=== PATIENT | female | born 1985 | race Caucasian/White ===

== ENCOUNTER 2017-03-03 09:37 | Emergency (ER) | payer MEDICAID ==
[~2017-03-03] VITALS: Ht 165.1 cm; Wt 93.0 kg
[2017-03-03 10:11] VITALS: Ht 165.1 cm; Wt 93.0 kg
--- NOTE | 2017-03-03 10:45 | ERA ---
ER Documentation Chief Complaint Date/Time DATE: 03/03/17 TIME: 10:42 Chief Complaint SENT FROM CLINIC FOR ULTRASOUND R/O ETOPIC , LMP 01/20, DENIES PAIN HPI This is a 31-year-old with positive test and [facility]. Patient is 6 weeks by LMP. Patient was sent to ER from the clinic for complicated by GDM. Bedside ultrasound of the clinic showed empty uterus and possible adnexal mass or cyst. Patient at this time is experiencing no symptoms. States that there was little bit of bleeding with her pelvic exam at the clinic. No other current complaints. ROS All systems reviewed and are negative except as per history of present illness. Allergies Allergies: Coded Allergies: No Known Drug Allergies (Verified Allergy, 11/11/11) PMhx/Soc History of Surgery: Yes ( x1) Anesthesia Reaction: No Hx Neurological Disorder: No Hx Respiratory Disorders: Yes (Asthma) Hx Cardiac Disorders: No Hx Psychiatric Problems: No Hx Miscellaneous Medical Probl: No Hx Alcohol Use: No Hx Substance Use: No Hx Tobacco Use: No Physical Exam Vitals Vital Signs Date Time Temp Pulse Resp B/P Pulse Ox O2 Delivery O2 Flow Rate FiO2 03/03/17 10:11 98.7 61 20 122/75 100 Physical Exam Const: Overweight 31-year-old female Head: Atraumatic Eyes: Normal Conjunctiva. PERRLA. EOMI bilaterally. ENT: Normal External Ears, Nose and Mouth. Neck: Full range of motion..~ No meningismus. Resp: Clear to auscultation bilaterally Cardio: Regular rate and rhythm, no murmurs Abd: Soft, non tender, non distended. Normal bowel sounds. No fetus palpated on abdominal exam. Skin: No petechiae or rashes Back: No midline or flank tenderness Ext: No cyanosis, or edema Neur: Awake and alert. Neurovascularly intact bilaterally. Psych: Normal Mood and Affect Result Diagram: 03/03/17 1056 Results 24 hrs Laboratory Tests Test 03/03/17 10:56 White Blood Count 9.310^3/ul Red Blood Count 4.7110^6/ul Hemoglobin 10.9g/dl Hematocrit 34.0% Mean Corpuscular Volume 72.2fl Mean Corpuscular Hemoglobin 23.1pg Mean Corpuscular Hemoglobin Concent 32.1g/dl Red Cell Distribution Width 16.2% Platelet Count 05187^3/UL Mean Platelet Volume 10.3fl Neutrophils % 59.5% Lymphocytes % 31.9% Monocytes % 4.8% Eosinophils % 2.6% Basophils % 0.6% Nucleated Red Blood Cells % 0.0/100WBC Neutrophils # 5.510^3/ul Lymphocytes # 3.010^3/ul Monocytes # 0.510^3/ul Eosinophils # 0.210^3/ul Basophils # 0.110^3/ul Nucleated Red Blood Cells # 0.010^3/ul Urine Color LT. YELLOW Urine Clarity CLEAR Urine pH 5.5 Urine Specific [place] <=1.005 Urine Ketones NEGATIVE Urine Nitrite NEGATIVE Urine Bilirubin NEGATIVE Urine Urobilinogen 0.2 E.U./dL Urine Leukocyte Esterase NEGATIVE Urine Microscopic RBC 0-2/HPF Urine Microscopic WBC NONE SEEN/HPF Urine Epithelial Cells FEW Urine Bacteria FEW Urine Hemoglobin 2+ Urine Glucose NEGATIVE% Urine Total Protein NEGATIVE Beta HCG, Quantitative 96582.0mIU/ml Procedures/MDM Patient was sent by [facility]. Will rule out ectopic . Ultrasound and lab work has been ordered for evaluation. Patient has no discomfort at this time and has refused any pain medications. Patient's ultrasound results were read by the radiologist and showed the following impression :Possible early intrauterine at 5 weeks and 6 days. Close followup ultrasound and hCG is recommended. Simple cyst in the right ovary. Beta-hCG levels are within normal range however patient will be recommended to follow-up in 48 hours for repeat levels. Most likely diagnosis at this time is a threatened . At this time I do not suspect ovarian torsion, tubo-ovarian abscess, mechanical obstruction, ectopic , hernia, appendicitis, intestinal ischemia, PID, AAA, diverticulitis or cystitis. Patient is well-appearing and her current condition is appropriate for discharge. Patient will be discharged with discharge instructions return precautions. Patient has verbally agreed to the assessment and plan. I spoke with my attending Dr. Watts who also agrees with the assessment and plan. Departure Diagnosis: Primary Impression: Vaginal bleeding before 22 weeks gestation Additional Impression: Encounter for laboratory test Condition: Stable Additional Instructions: Follow-up in 2 days at the ED or with [facility] for repeat beta hCG levels. If symptoms change or worsen return to the emergency department immediately. MARÍA BATES PA-C Mar 03, 2017 10:45
[2017-03-03 11:10] LABS: ADD SCAN DIFF NO
[2017-03-03 11:14] LABS: BASOPHIL # 0.1 10^3/ul (0.0-0.1); BASOPHILS % 0.6 % (0.0-2.0); EOSINOPHILS # 0.2 10^3/ul (0.0-0.5); EOSINOPHILS % 2.6 % (0.0-7.0); HEMOGLOBIN 10.9 g/dl (12.0-16.0); LYMPHOCYTES % 31.9 % (15.0-51.0); MEAN CORPUSCULAR HEMOGLOBIN 23.1 pg (29.0-33.0); MEAN CORPUSCULAR HGB CONC 32.1 g/dl (32.0-37.0); MEAN CORPUSCULAR VOLUME 72.2 fl (82.0-101.0); MEAN PLATELET VOLUME 10.3 fl (7.4-10.4); MONOCYTE # 0.5 10^3/ul (0.3-0.9); MONOCYTES % 4.8 % (0.0-11.0); NEUTROPHIL # 5.5 10^3/ul (1.6-7.5); NEUTROPHILS % 59.5 % (39.0-77.0); PLATELET COUNT 397 10^3/UL (140-415); RED BLOOD COUNT 4.71 10^6/ul (4.20-5.40); RED CELL DISTRIBUTION WIDTH 16.2 % (11.5-14.5); WHITE BLOOD COUNT 9.3 10^3/ul (4.8-10.8)
[2017-03-03 11:22] LABS: ADD UMIC YES; URINE BILIRUBIN (Dip) NEGATIVE (NEGATIVE); URINE BLOOD (Dip) 2+ (NEGATIVE); URINE COLOR LT. YELLOW (YELLOW); URINE GLUCOSE (Dip) NEGATIVE (NEGATIVE); URINE KETONES (Dip) NEGATIVE (NEGATIVE); URINE LEUKOCYTE ESTERASE (Dip) NEGATIVE (NEGATIVE); URINE NITRITE (Dip) NEGATIVE (NEGATIVE); URINE TOTAL PROTEIN (Dip) NEGATIVE (NEGATIVE); URINE UROBILINOGEN (Dip) 0.2 E.U./dL (0.1-1.0)
[2017-03-03 11:33] LABS: BACTERIA,URINE FEW; URINE RBCS 0-2 /HPF (0)
--- NOTE | 2017-03-03 11:39 | RADRPT ---
PROCEDURE: US Pelvis/OB. CLINICAL INDICATION: vaginal bleeding TECHNIQUE: Multiple sonographic images of the pelvis were obtained utilizing a transabdominal and endovaginal technique. The images were reviewed on a PACS workstation. COMPARISON: None. FINDINGS: The study is limited due to the patient's body habitus. There is a small cystic structure within the endometrium measuring 1.2 cm which would correspond to a calculated gestational age of 5 weeks and 6 days. There is a yolk sac visualized. No pole i s yet visualized. The right ovary measures 3.7 x 3.3 x 3.4 cm. There is a 2.6 cm simple cyst in the right ovary. The left ovary was not visualized. There is a small amount of free fluid in the cul-de-sac. RPTAT: AA IMPRESSION: Possible early intrauterine at 5 weeks and 6 days. Close followup ultrasound and hCG is recommended. Simple cyst in the right ovary. .Mack Lam MD, MD Date Time Electronically viewed and signed by .Mack Lam MD, on 03/03/2017 11:39 .S/
== END 2017-03-03 12:55 | disposition home or self-care (01) ==
LOC: FTE 09:37
DX: O20.9 Hemorrhage in early pregnancy, unspecified (principal); Z36 Encounter for antenatal screening of mother; Z3A.01 Less than 8 weeks gestation of pregnancy
CPT/HCPCS: 36415; 76801; 76817; 81001; 84702; 85025; 86900; 86901; Z7502

== ENCOUNTER 2017-04-14 20:07 | Emergency (ER) | payer MEDICAID ==
[~2017-04-14] VITALS: Ht 170.2 cm; Wt 94.0 kg
[2017-04-14 20:11] VITALS: Ht 170.2 cm; Wt 94.0 kg
[2017-04-14] MEDS ORDERED: ACETAMINOPHEN 325 MG TAB PO STA (20:31)
--- NOTE | 2017-04-14 20:44 | ERD ---
ER Documentation Chief Complaint Date/Time DATE: 04/14/17 TIME: 20:42 Chief Complaint 12 weeks , pelvic pain, back pain, hot flashes HPI 31-year-old female presents here in emergency department for complaints of pelvic pain radiating to the back started today, patient also has been complaining of hot flashes. Patient's approximate 12 weeks . Patient is 2 para 1 0. LMP 01/20/2017. Patient denies any vaginal bleeding. Patient denies any fever or chills. Patient denies any nausea or vomiting. ROS All systems reviewed and are negative except as per history of present illness. Medications Home Meds Active Scripts Acetaminophen* (Tylophen*) 500 Mg Capsule, 1 CAP PO Q6H Y for PAIN AND OR ELEVATED TEMP, #20 CAP Prov:GONZALEZ SILVA [employer] 04/14/17 Cephalexin* (Keflex*) 500 Mg Capsule, 500 MG PO QID for 10 Days, CAP Prov:GONZALEZ SILVA [employer] 04/14/17 Reported Medications [none] Unknown Strength No Conflict Check 04/14/17 Allergies Allergies: Coded Allergies: No Known Drug Allergies (Verified Allergy, 11/11/11) PMhx/Soc History of Surgery: Yes ( x1) Anesthesia Reaction: No Hx Neurological Disorder: No Hx Respiratory Disorders: Yes (Asthma) Hx Cardiac Disorders: No Hx Psychiatric Problems: No Hx Miscellaneous Medical Probl: No Hx Alcohol Use: No Hx Substance Use: No Hx Tobacco Use: No Smoking Status: Never smoker FmHx Family History: No coronary disease, No diabetes, No other Physical Exam Vitals Vital Signs Date Time Temp Pulse Resp B/P Pulse Ox O2 Delivery O2 Flow Rate FiO2 04/14/17 20:11 97.8 66 20 162/84 98 Physical Exam GENERAL: The patient is well developed and appropriate for usual state of health, in no apparent distress. CHEST: Clear to auscultation bilaterally. There are no rales, wheezes or rhonchi. HEART: Regular rate and rhythm. No murmurs, clicks, rubs or gallops. No S3 or S4. ABDOMEN: Soft, nontender and nondistended. Good bowel sounds. No rebound or guarding. No gross peritonitis. No gross organomegaly or masses. No Godfrey sign or McBurney point tenderness. BACK: No midline or flank tenderness. EXTREMITIES: Equal pulses bilaterally. There is no peripheral clubbing, cyanosis or edema. No focal swelling or erythema. Full range of motion. Grossly neurovascularly intact. NEURO: Alert and oriented. Cranial nerves 2-12 intact. Motor strength in all 4 extremities with 5/5 strength. Sensation grossly intact. Normal speech and gait. SKIN: There is no apparent rash or petechia. The skin is warm and dry. HEMATOLOGIC AND LYMPHATIC: There is no evidence of excessive bruising or lymphedema. No gross cervical, axillary, or inguinal lymphadenopathy. Result Diagram: 04/14/172102 Results 24 hrs Laboratory Tests Test 04/14/17 20:42 04/14/17 21:03 Urine Color STRAW Urine Clarity CLEAR Urine pH 7.0 Urine Specific [place] 1.010 Urine Ketones NEGATIVEmg/dL Urine Nitrite NEGATIVEmg/dL Urine Bilirubin NEGATIVEmg/dL Urine Urobilinogen NEGATIVEmg/dL Urine Leukocyte Esterase TRACELeu/ul Urine Microscopic RBC 3/HPF Urine Microscopic WBC 1/HPF Urine Squamous Epithelial Cells FEW/HPF Urine Bacteria FEW/HPF Urine Hemoglobin 2+mg/dL Urine Glucose NEGATIVEmg/dL Urine Total Protein NEGATIVEmg/dl White Blood Count 10.610^3/ul Red Blood Count 4.6310^6/ul Hemoglobin 11.1g/dl Hematocrit 34.4% Mean Corpuscular Volume 74.3fl Mean Corpuscular Hemoglobin 24.0pg Mean Corpuscular Hemoglobin Concent 32.3g/dl Red Cell Distribution Width 18.0% Platelet Count 67864^3/UL Mean Platelet Volume 10.7fl Neutrophils % 56.3% Lymphocytes % 33.0% Monocytes % 6.2% Eosinophils % 3.5% Basophils % 0.4% Nucleated Red Blood Cells % 0.0/100WBC Neutrophils # 6.010^3/ul Lymphocytes # 3.510^3/ul Monocytes # 0.710^3/ul Eosinophils # 0.410^3/ul Basophils # 0.010^3/ul Nucleated Red Blood Cells # 0.010^3/ul Beta HCG, Quantitative 926465.0mIU/ml Current Medications Medications (Trade) Dose Ordered Sig/Henry Route PRN Reason Start Time Stop Time Status Last Admin Dose Admin Acetaminophen (Tylenol Tab) 650 mg ONCE STAT PO 04/14/17 20:31 04/14/17 20:33 DC 04/14/17 20:57 Patient was given medication for pain here in emergency department, after treatment, patient verbalized feeling much better. Patient's pain is improved. PROCEDURE: OB Ultrasound. CLINICAL INDICATION: Positive test. Pelvic pain. TECHNIQUE: Ultrasound of the pelvis was performed with transabdominal sonography in the axial and sagittal planes. COMPARISON: No prior study is available for comparison. FINDINGS: There is a single intrauterine gestational sac. pole and yolk sac are present. There is heart motion. heart rate is 166 beats per minute. [place]-rump length is 5.40 cm. Mean sac diameter is 5.60 cm. Menstrual age by ultrasound dates is 12 weeks 1 day. This indicates an expected date of delivery of 10/26/2017. The ovaries are not visualized. There is no other pelvic mass or free fluid. IMPRESSION: 1. Single live intrauterine gestation of 12 weeks 1 day menstrual age by ultrasound dates. 2. Expected date of delivery is 10/26/2017. RPTAT: QQ .Jan Montalvo MD, MD Date Time Electronically viewed and signed by .Jan Montalvo MD, MD on 04/14/2017 21:29 .R/ Procedures/MDM Medical Decision Making: Patient's symptoms of pelvic pain most active consistent with urinary tract infection, could most likely be also from the growing . Patient is a viable without any subchorionic hemorrhage. No symptoms of any threatened at this time. No symptoms of pyelonephritis. There is low suspicion for abdominal emergencies at this time. Patients abdominal exam is normal at this time. Patients radiology exam does not show any abdominal emergencies at this time. There is low suspicion for appendicitis, cholecystitis, abdominal aortic aneurysms or peritonitis at this time. There is low suspicion for sepsis. Patient appears well and is hemodynamically stable. Disposition: Home. Condition: Stable Prescription Tylenol, Keflex Instructions: Patient is advised to take medications as prescribed. Patient is advised to rest, increase fluid intake and do brat diet for next 1-2 days and progress as tolerated. Patient is advised that if symptoms are worse, severe abdominal pain, uncontrolled vomiting, high fever, severe flank pain, worst signs and symptoms, to return to the emergency department immediately. Otherwise, patient can follow up with OB doctor in 2 days for reevaluation of symptoms. Departure Diagnosis: Primary Impression: UTI (urinary tract infection) Urinary tract infection type: acute cystitis Hematuria presence: with hematuria Qualified Code: N30.01 - Acute cystitis with hematuria Additional Impressions: Pelvic pain Intrauterine Condition: Stable Patient Instructions: Pelvic Pain In : Unclear (2-3 Trimester), Pelvic Tilt, Leg Lift for Back Pain During , Understanding Urinary Tract Infections (UTIs) Additional Instructions: Patient is advised to take medications as prescribed. Patient is advised to rest , increase fluid intake and do brat diet for next 1-2 days and progress as tolerated. Patient is advised that if symptoms are worse, severe abdominal pain , uncontrolled vomiting, high fever, severe flank pain, worst signs and symptoms , to return to the emergency department immediately. Otherwise, patient can follow up with OB doctor in 2 days for reevaluation of symptoms. GONZALEZ SILVA NP Apr 14, 2017 20:44
[2017-04-14 21:13] LABS: ADD SCAN DIFF NO
[2017-04-14 21:14] LABS: BASOPHILS % 0.4 % (0.0-2.0); EOSINOPHILS # 0.4 10^3/ul (0.0-0.5); EOSINOPHILS % 3.5 % (0.0-7.0); HEMATOCRIT 34.4 % (37.0-47.0); HEMOGLOBIN 11.1 g/dl (12.0-16.0); LYMPHOCYTES # 3.5 10^3/ul (0.8-2.9); MEAN CORPUSCULAR HGB CONC 32.3 g/dl (32.0-37.0); MEAN CORPUSCULAR VOLUME 74.3 fl (82.0-101.0); MEAN PLATELET VOLUME 10.7 fl (7.4-10.4); MONOCYTE # 0.7 10^3/ul (0.3-0.9); MONOCYTES % 6.2 % (0.0-11.0); NEUTROPHILS % 56.3 % (39.0-77.0); PLATELET COUNT 310 10^3/UL (140-415); RED BLOOD COUNT 4.63 10^6/ul (4.20-5.40); WHITE BLOOD COUNT 10.6 10^3/ul (4.8-10.8)
[2017-04-14 21:17] LABS: ADD UMIC YES; UR ASCORBIC ACID NEGATIVE (NEGATIVE); UR BACTERIA FEW /HPF (NONE SEEN); UR BILIRUBIN (Dip) NEGATIVE (NEGATIVE); UR BLOOD (Dip) 2+ mg/dL (NEGATIVE); UR CLARITY CLEAR (CLEAR); UR COLOR STRAW (YELLOW); UR GLUCOSE (Dip) NEGATIVE (NEGATIVE); UR KETONES (Dip) NEGATIVE (NEGATIVE); UR LEUKOCYTE ESTERASE (Dip) TRACE Leu/ul (NEGATIVE); UR NITRITE (Dip) NEGATIVE (NEGATIVE); UR RBC 3 /HPF (0-5); UR SQUAMOUS EPITHELIAL CELL FEW /HPF (FEW); UR TOTAL PROTEIN (Dip) NEGATIVE (NEGATIVE); UR UROBILINOGEN (Dip) NEGATIVE (NEGATIVE)
--- NOTE | 2017-04-14 21:30 | RADRPT ---
PROCEDURE: OB Ultrasound. CLINICAL INDICATION: Positive test. Pelvic pain. TECHNIQUE: Ultrasound of the pelvis was performed with transabdominal sonography in the axial and sagittal planes. COMPARISON: No prior study is available for comparison. FINDINGS: There is a single intrauterine gestational sac. pole and yolk sac are present. There is heart motion. heart rate is 166 beats per minute. [place]-rump length is 5.40 cm. Mean sac diameter is 5.60 cm. Menstrual age by ultrasound dates is 12 weeks 1 day. This indicates an expected date of delivery of 10/26/2017. The ovaries are not visualized. There is no other pelvic mass or free fluid. IMPRESSION: 1. Single live intrauterine gestation of 12 weeks 1 day menstrual age by ultrasound dates. 2. Expected date of delivery is 10/26/2017. RPTAT: QQ .Jan Montalvo MD, Date Time Electronically viewed and signed by .Jan Montalvo MD, on 04/14/2017 21:29 .R/
[2017-04-14] MEDS ORDERED: ACET500C5 PO (21:50)
[2017-04-14] MEDS ORDERED: CEPH-443 PO (21:50)
== END 2017-04-14 22:27 | disposition home or self-care (01) ==
LOC: FTE 20:07
DX: O23.11 Infections of bladder in pregnancy, first trimester (principal); R10.2 Pelvic and perineal pain; O99.511 Diseases of the respiratory system complicating pregnancy, first trimester; J45.909 Unspecified asthma, uncomplicated; Z3A.12 12 weeks gestation of pregnancy
CPT/HCPCS: 36415; 76801; 81001; 84702; 85025; 86900; 86901; Z7502; Z7610

== ENCOUNTER 2017-08-20 12:58 | Outpatient (CLI) | payer OTHER ==
[~2017-08-20] VITALS: Ht 165.1 cm; Wt 97.9 kg
[~2017-08-20 12:58] MED LIST: ACET500C5 PO; CEPH-443 PO
[2017-08-20 13:15] VITALS: BP 130/79; PULSE 78; RESP 19; Ht 165.1 cm; Wt 97.9 kg
--- NOTE | 2017-08-20 14:44 | RADRPT ---
PROCEDURE: US biophysical profile. CLINICAL INDICATION: Pain. well-being. TECHNIQUE: Multiple sonographic images of the uterus were obtained. The images were revi ewed on a PACS workstation. COMPARISON: 04/14/2017. FINDINGS: There is a single live intrauterine gestation. heart rate is 176 beats per minute. The position is cephalic. The placenta is posterior, grade 2. The DANNIELLE is 11.4 cm. The cervical length measures 4.6 cm. Breathing Movement: 2 Gross Body Movement: 2 Tone: 2 Qualitative Amniotic Fluid Volume: 2 TOTAL: 8 IMPRESSION: 1. Single viable intrauterine gestation. 2. Biophysical profile = 05/05. 3. DANNIELLE = 11.4 cm. 4. The cervical length measures 4.6 cm. RPTAT: HFN .Julianne Trent MD, MD Date Time Electronically viewed and signed by .Julianne Trent MD, MD on 08/20/2017 14:44 .N/
--- NOTE | 2017-08-20 15:11 | TRIAGE ---
OB Triage Datetime Report Generated by CPN: 08/20/2017 15:11 Datetime: 08/20/2017 14:56 Stage of : OB Triage Maternal Assessment Level of Consciousness: Fully Conscious DTR's/Clonus: DTRs 1+ Headache: Denies Breath Sounds, Left: Clear and Equal Breath Sounds, Right: Clear and Equal Nausea/Vomiting: Denies RUQ Epigastric Pain: Denies Labor Evaluation Frequency: none Monitor Mode: External Resting Tone Shafter: Relaxed Heart Rate FHR Baseline Rate: 150 Monitor Mode: External US Variability: Moderate 6-25 bpm Accelerations: 15X15 Decelerations: None Pain Assessment Pain Scale: 5 Pain Presence: Constant Pain Type: Ache Pain Location: Back Pain Goal: 3 Vaginal Exam Membrane Status: Intact Datetime: 08/20/2017 14:34 Stage of : OB Triage Maternal Assessment Level of Consciousness: Fully Conscious DTR's/Clonus: DTRs 1+ Headache: Denies Breath Sounds, Left: Clear and Equal Breath Sounds, Right: Clear and Equal Nausea/Vomiting: Denies RUQ Epigastric Pain: Denies Labor Evaluation Frequency: none Monitor Mode: External Resting Tone [place]: Relaxed Heart Rate FHR Baseline Rate: 150 Monitor Mode: External US Variability: Moderate 6-25 bpm Accelerations: 15X15 Decelerations: None Category: Category I Pain Assessment Pain Scale: 5 Pain Presence: Constant Pain Type: Ache Pain Location: Back Pain Goal: 3 Vaginal Exam Membrane Status: Intact Datetime: 08/20/2017 14:06 Monitor Mode: External US Datetime: 08/20/2017 13:34 Stage of : OB Triage Maternal Assessment Level of Consciousness: Fully Conscious DTR's/Clonus: DTRs 1+ Headache: Denies Breath Sounds, Left: Clear and Equal Breath Sounds, Right: Clear and Equal Nausea/Vomiting: Denies RUQ Epigastric Pain: Denies Labor Evaluation Frequency: none Monitor Mode: External Resting Tone [place]after: Relaxed Heart Rate FHR Baseline Rate: 150 Monitor Mode: External US Variability: Moderate 6-25 bpm Accelerations: 15X15 Decelerations: None Category: Category I Pain Assessment Pain Scale: 5 Pain Presence: Constant Pain Type: Ache Pain Location: Back Pain Goal: 3 Vaginal Exam Membrane Status: Intact Datetime: 08/20/2017 13:16 Maternal Assessment Level of Consciousness: Fully Conscious DTR's/Clonus: DTRs 1+ Headache: Denies Blurred Vision: No Respiratory Effort: Unlabored Breath Sounds, Left: Clear and Equal Breath Sounds, Right: Clear and Equal Nausea/Vomiting: Denies RUQ Epigastric Pain: Denies Facial Edema: None Labor Evaluation Frequency: none Monitor Mode: External Resting Tone Shafter: Relaxed Heart Rate FHR Baseline Rate: 150 Monitor Mode: External US Variability: Moderate 6-25 bpm Accelerations: 15X15 Decelerations: None Category: Category I Pain Assessment Pain Scale: 5 Pain Presence: Constant Pain Type: Ache Pain Location: Back Pain Goal: 3 Vaginal Exam Membrane Status: Intact Datetime: 08/20/2017 13:11 Assessment Type: Triage Maternal Assessment Level of Consciousness: Fully Conscious DTR's/Clonus: DTRs 2+; No Clonus Headache: Denies Blurred Vision: No Respiratory Effort: Unlabored; Regular Rhythm; Equal Expansion Breath Sounds, Left: Clear and Equal Breath Sounds, Right: Clear and Equal Nausea/Vomiting: Denies RUQ Epigastric Pain: Denies Lower Extremities Edema: None Degree: None Upper Extremities Edema: None Degree: None Facial Edema: None Fall Risk Assessment History of Falling: (0) No Secondary Diagnosis: (0) No Ambulatory Aid: (0) Bedrest/Nurse Assist IV Therapy: (0) No Gait: (0) Normal/Bedrest/Immobile Mental Status: (0) Oriented to Own Ability Fall Score: 0 Fall Risk Score Definition: No Risk: No action required Datetime: 08/20/2017 13:09 EGA: 30.3 Datetime: 08/20/2017 12:55 Time of Arrival: 08/20/2017 12:55 Arrived By: Wheelchair Arrived From: Home Chief Complaint: PT CAME IN C/O CONSTANT BACK PAIN AND LEG PAIN SPECIALLY ON HER RT BACK RADIATING HER PAIN DOWN TO HER LEG. SHE ALSO STATES THAT HER LEGS ARE WEAK. Movement: Present Contractions: Denies/Absent Rupture of Membranes: Denies Vaginal Bleeding: None Vaginal Discharge: Denies Recent Sexual Intercouse: Denies Abdominal Trauma: Not Applicable Patient Complaints: Back Pain; Other Additional Patient Complaints: NONE Time Provider Notified: 08/20/2017 13:16 Provider Notified: BERNARD Initial Plan: MONITOR
--- NOTE | 2017-08-20 15:17 | CONS ---
Date/Time of Note Date/Time of Note DATE: 08/20/17 TIME: 15:08 Consultation Date/Type/Reason Admit Date/Time August 20, 2017 OB triage consult This patient is 32 years old 2 para 1 with estimated date of confinement of October 26, 2017 which makes her 30 weeks and 3 days today. She came to triage complaining of back pain, mostly right sided, as well as leg pain, occasional contraction and weakness of her legs. She has gestational diabetes; diet-controlled during this . Her general vital signs are close to normal with blood pressure 130/78, pulse rate 78 respiration 18 and temperature of 98.9,. She is somewhat overweight her body weight was 97.9. Abdomen is soft she does not have any contraction , heart tone is normal with good variability and occasional acceleration no decelerations. Constitutional: other (Somewhat overweight), No chills, No diaphoresis, No disoriented, No febrile, No improved, No no complaints, No poor po, No requiring IVF, No requiring O2 Eyes: No discharge, No no complaints, No other, No pain, No redness, No visual change ENT: No bleeding, No congestion, No discharge, No dysphagia, No no complaints, No other, No pain, No sore throat Respiratory: No cough, No no complaints, No other, No pain, No pleuritic pain, No shortness of breath, No sputum, No wheezing Cardiovascular: No chest pain, No edema, No lightheadedness, No no complaints, No orthopenea, No other, No palpitations, No paroxysmal nocturnal dyspnea Gastrointestinal: other, No blood, No constipation, No decreased appetite, No diarrhea, No flatus, No nausea, No no complaints, No pain, No passing stool, No vomiting Genitourinary: other (Due to lack of any contractions the pelvic examination was not performed), No bleeding, No discharge, No dysuria, No flank pain, No hematuria, No no complaints Musculoskeletal: No back pain, No bone/joint pain, No neck pain, No no complaints, No other, No restricted range of motion, No swelling Skin: No bruising, No erythema, No laceration, No no complaints, No other, No pruritis, No rash, No skin lesions Neurologic: other (Knee-jerk reflexes normal), No confusion, No dizziness, No focal-weakness, No headache, No no complaints , No seizure, No syncope Additional Comments We ordered an ultrasound ,the result was a single live intrauterine gestation with heartbeat of 176 bpm, vertex presentation, placenta was posterior grade 2, amniotic fluid index was 11.4 ,cervical length was 4.6 cm and her biophysical profile was reported 05/05 ; .Disposition: these normal findings were discussed with the patient and she was advised to go to ER if she is still has leg pain. And she decided to go to emergency room for further study for possible sciatic nerve problem Social History Smoking Status: Never smoker Exam/Review of Systems Vital Signs Vitals Vital Signs Date Time Temp Pulse Resp B/P Pulse Ox O2 Delivery O2 Flow Rate FiO2 08/20/17 13:15 98.9 78 19 130/79 99 Room Air BRANT WAGNER MD Aug 20, 2017 15:17
[2017-08-20] MEDS ORDERED: ACET500C5 PO (15:43)
== END 2017-08-20 15:05 | disposition home or self-care (01) ==
LOC: OBT 12:58 → L-D 12:58 → OBT 15:05
PROVIDERS: ATTEND Obstetrics & Gynecology
DX: O24.410 Gestational diabetes mellitus in pregnancy, diet controlled (principal); O26.893 Other specified pregnancy related conditions, third trimester; M54.9 Dorsalgia, unspecified; M79.606 Pain in leg, unspecified; Z3A.30 30 weeks gestation of pregnancy
CPT/HCPCS: 76817; 76818; G0463

== ENCOUNTER 2017-08-20 15:16 | Emergency (ER) | payer OTHER ==
[~2017-08-20] VITALS: Wt 97.2 kg
[2017-08-20] MEDS ORDERED: ACET500C5 PO (15:43)
--- NOTE | 2017-08-20 15:58 | ERD ---
ER Documentation Chief Complaint Chief Complaint back pain rad right leg, clear by obgyn , 30 weeks HPI Patient is a 32-year-old female, , approximately 30 weeks , who presents ED for concerns of right-sided back pain which is radiating down her right leg. She was cleared by the [facility] team prior to arriving to the ED. she states her back pain started earlier this morning. Patient denies taking any medication for the pain. Patient denies any falls or trauma. Patient states the pain is worse when lying down. Patient is for work she unloads boxes from a truck. Patient does not recall any injuries over the last few days. Patient denies any saddle anesthesia, urinary incontinence, stool incontinence fever, chills, dysuria, hematuria or flank pain. Patient does have a history of gestational diabetes however she states that her diabetes is diet controlled. Patient states her glucose reading this morning was 101. ROS All systems reviewed and are negative except as per history of present illness. Medications Home Meds Active Scripts Acetaminophen* (Tylophen*) 500 Mg Capsule, 1 CAP PO Q6H Y for PAIN AND OR ELEVATED TEMP, #20 CAP Prov:NILAM JAMES PA-C 08/20/17 Reported Medications [none] Unknown Strength No Conflict Check 04/14/17 Allergies Allergies: Coded Allergies: No Known Drug Allergies (Verified Allergy, Unknown, 08/20/17) PMhx/Soc History of Surgery: Yes ( x1) Anesthesia Reaction: No Hx Neurological Disorder: No Hx Respiratory Disorders: Yes (Asthma) Hx Cardiac Disorders: No Hx Psychiatric Problems: No Hx Miscellaneous Medical Probl: No Hx Alcohol Use: No Hx Substance Use: No Hx Tobacco Use: No Physical Exam Vitals Vital Signs Date Time Temp Pulse Resp B/P Pulse Ox O2 Delivery O2 Flow Rate FiO2 08/20/17 15:18 99.1 76 18 130/73 99 Physical Exam GENERAL: Well-developed, well-nourished female. Appears in no acute distress. Speaking in full sentences. HEAD: Normocephalic, atraumatic. EYES: Pupils are equally reactive bilaterally. EOMs grossly intact. No conjunctival erythema. ENT: Moist mucous membranes. No uvula deviation. No kissing tonsils. NECK: Supple. No meningismus. Normal range of motion of the neck. LUNG: Clear to auscultation bilaterally. No rhonchi, wheezing, rales or coarse breath sounds. HEART: Regular rate and rhythm. No murmurs, rubs or gallops. BACK: No midline tenderness. R lumbar paraspinalis muscle tenderness and R gluteal muscle tenderness. +Right straight leg raise. EXTREMITIES: Equal pulses bilaterally. No peripheral clubbing, cyanosis or edema. No unilateral leg swelling. NEUROLOGIC: Alert and oriented. Moving all four extremities without any difficulty. Normal speech. Steady gait. SKIN: Normal color. Warm and dry. No rashes or lesions. Procedures/MDM MEDICAL DECISION MAKING: This is a 32-year-old female, approximately 30 weeks , presents with right-sided back pain radiating down her right leg 1 day. Patient was cleared by the [facility] team prior to arrival to the ED. Patient underwent a ultrasound arrival to the ED which showed 1. Single viable intrauterine gestation. 2. Biophysical profile = 8/8. 3. DANNIELLE = 11.4 cm. 4. The cervical length measures 4.6 cm. Vital signs were reviewed. Patient's blood pressure was 130/73. Patient was afebrile. Patient was not hypoxic. Patient denies any falls or trauma. Given that patient denied any falls or trauma, there is no indication for emergent MRI at this time. Patient denied trying any medications. Patient was given a prescription for Tylenol. Patient was also advised to use heat. Patient denies any urinary symptoms. At this time, the patient's presentation is most consistent with right buttocks pain with sciatica. Low suspicion for cauda equina syndrome, spinal fractures, myelitis, aortic dissection, pyelonephritis, nephrolithiasis, eclampsia, preeclampsia or other emergent OB conditions. PRESCRIPTIONS: Tylenol DISCHARGE: At this time, patient is stable for discharge and outpatient management. Patient was given a work note. RICE therapy and ROM exercises were advised to avoid stiffness. I have instructed the patient to follow-up with his/her primary care physician in 1-2 days. I have discussed with the patient the possibility of needing to see an lean manufacturing specialist for further workup and imaging if the pain persists. I have instructed the patient to promptly return to the ER for any new or worsening symptoms including increased pain, swelling, warmth, urinary incontinence, stool incontinence, weakness or numbness. The patient and/or family expressed understanding of and agreement with this plan. All questions were answered. Home care instructions were provided. Disclaimer: Inadvertent spelling and grammatical errors are likely due to EHR/ dictation software use and do not reflect on the overall quality of patient care. Also, please note that the electronic time recorded on this note does not necessarily reflect the actual time of the patient encounter. Departure Diagnosis: Primary Impression: Sciatica Laterality: right Qualified Code: M54.31 - Sciatica of right side Additional Impression: Right buttock pain Condition: Stable Patient Instructions: Back Pain During , Relieving Back Pain During : Wall Stretch, Body Bend Referrals: COMM[facility]ITY [facility] YOU HAVE RECEIVED A MEDICAL SCREENING EXAM AND THE RESULTS INDICATE THAT YOU DO NOT HAVE A CONDITION THAT REQUIRES URGENT TREATMENT IN THE EMERGENCY DEPARTMENT. FURTHER EVALUATION AND TREATMENT OF YOUR CONDITION CAN WAIT UNTIL YOU ARE SEEN IN YOUR DOCTORS OFFICE WITHIN THE NEXT 1-2 DAYS. IT IS YOUR RESPONSIBILITY TO MAKE AN APPOINTMENT FOR FOLOW-UP CARE. IF YOU HAVE A PRIMARY DOCTOR --you should call your primary doctor and schedule an appointment IF YOU DO NOT HAVE A PRIMARY DOCTOR YOU CAN CALL OUR PHYSICIAN REFERRAL HOTLINE AT IF YOU CAN NOT AFFORD TO SEE A PHYSICIAN YOU CAN CHOSE FROM THE FOLLOWING [facility] [address] [facility]. [facility] [address] [facility]. [facility] [address] [facility]. [facility] [address] [facility]. [facility] [address] [facility]. [facility]. [address] [facility]. [facility] YOU HAVE RECEIVED A MEDICAL SCREENING EXAM AND THE RESULTS INDICATE THAT YOU DO NOT HAVE A CONDITION THAT REQUIRES URGENT TREATMENT IN THE EMERGENCY DEPARTMENT. FURTHER EVALUATION AND TREATMENT OF YOUR CONDITION CAN WAIT UNTIL YOU ARE SEEN IN YOUR DOCTORS OFFICE WITHIN THE NEXT 1-2 DAYS. IT IS YOUR RESPONSIBILITY TO MAKE AN APPOINTMENT FOR FOLOW-UP CARE. IF YOU HAVE A PRIMARY DOCTOR --you should call your primary doctor and schedule and appointment IF YOU DO NOT HAVE A PRIMARY DOCTOR YOU CAN CALL OUR PHYSICIAN REFERRAL HOTLINE AT . IF YOU CAN NOT AFFORD TO SEE A PHYSICIAN YOU CAN CHOSE FROM THE FOLLOWING [facility] INSTITUTIONS: [facility] [address] [place] [address] [facility] [address] [place] [address] [facility] [address] [place] [address] [place] [address] [facility] [address] [place] [address] OFFICE FAX , [facility] [address] [place], [place] [id number] [facility] [address] [place] [address] [address], [facility] [address] [facility] [address] [address] [address] [place] [address] [facility] [address] [place] [address] [address] [facility] [address] - MIGUEL RICHARD [address] [facility] [address], [facility] [address] [address] [address] [facility]. [address], [facility] [address] [address] [address] [place], [place] [id number] Additional Instructions: Use heat as needed. Take Tylenol as needed. Call your primary care doctor/ OBGYN TOMORROW for an appointment during the next 1-2 days.See the doctor sooner or return here if your condition worsens before your appointment time. NILAM JAMES PA-C Aug 20, 2017 15:58
== END 2017-08-20 15:53 | disposition home or self-care (01) ==
LOC: FTE 15:16
DX: O99.89 Other specified diseases and conditions complicating pregnancy, childbirth and the puerperium (principal); M54.41 Lumbago with sciatica, right side; J45.909 Unspecified asthma, uncomplicated; O99.513 Diseases of the respiratory system complicating pregnancy, third trimester; Z3A.30 30 weeks gestation of pregnancy
CPT/HCPCS: 99283

== ENCOUNTER 2017-09-23 15:10 | Inpatient (IN) | END 2017-09-26 15:32 | disposition home or self-care (01) | DRG 781 ==

== ENCOUNTER 2017-10-07 07:49 | Inpatient (IN) | END 2017-10-11 13:44 | disposition home or self-care (01) | DRG 766 ==

== ENCOUNTER 2017-10-17 14:48 | Emergency (ER) | END 2017-10-17 16:33 | disposition home or self-care (01) ==

== ENCOUNTER 2018-12-29 13:47 | Emergency (ER) | payer OTHER ==
[~2018-12-29] VITALS: Ht 165.1 cm; Wt 102.6 kg
[~2018-12-29 13:47] MED LIST changes: -ACET500C5 PO; -CEPH-443 PO; +IBUP-1544 PO; +METF500T3 PO; +PREN1TAB79 PO
[2018-12-29 14:00] VITALS: Ht 165.1 cm; Wt 102.6 kg
--- NOTE | 2018-12-29 15:08 | ERD ---
ER Documentation Chief Complaint Chief Complaint lightheaded, dizziness, hot flash while at work HPI 33-year-old female presents the emergency department after a brief episode of lightheadedness. Patient states she was at work having a normal day where she had a brief episode of a "hot flash" that then reported lightheadedness. She had no focal weakness or numbness or difficulty speaking. She had no chest pain or palpitations. She did not pass out. Currently she is asymptomatic. ROS All systems reviewed and are negative except as per history of present illness. Medications Home Meds Active Scripts Metformin* (Glucophage* XR) 500 Mg Tab.sr.24h, 500 MG PO BID, #120 6 Refills Prov:CARLO SUAREZ MD 10/08/17 Ibuprofen* (Ibuprofen*) 800 Mg Tablet, 800 MG PO Q8, #60 TAB 0 Refills Prov:CARLO SUAREZ MD 10/08/17 Reported Medications Vit W-Ca,Fe,FA(<1 mg) ( Vitamins) 1 Each Tablet, 1 EACH PO, TAB 09/23/17 Allergies Allergies: Coded Allergies: No Known Drug Allergies (Verified Allergy, Unknown, 10/17/17) PMhx/Soc History of Surgery: Yes ( x2) Anesthesia Reaction: No Hx Neurological Disorder: No Hx Respiratory Disorders: Yes (Asthma) Hx Cardiac Disorders: No Hx Psychiatric Problems: No Hx Miscellaneous Medical Probl: Yes (GESTATIONAL DIABETES , PRE ECLAMPSIA ) Hx Alcohol Use: No Hx Substance Use: No Hx Tobacco Use: No Physical Exam Vitals Vital Signs Date Temp Pulse Resp B/P (MAP) Pulse Ox O2 O2 Flow FiO2 Time Delivery Rate 12/29/18 98.9 75 18 156/91 100 14:00 (112) Physical Exam GENERAL: The patient is well developed and appropriate for usual state of health in no apparent distress HEENT: Pupils equal, round, and reactive to light. EOMI. There is no scleral icterus. NECK: C-spine is soft and supple, there is no meningismus. There is no cervical lymphadenopathy. LUNGS: Clear to auscultation bilaterally. There are no rales, wheezes or rhonchi. HEART: Regular rate and rhythm, no murmurs, clicks, rubs or gallops. ABDOMEN: Soft, non-tender, non-distended. There are bowel sounds in all four quadrants. No rebound or guarding. EXTREMITIES: There is no peripheral cyanosis or edema. No focal swelling or er ythema. NEURO: The patient moves all four extremities with 5/5 strength. Cranial nerves II - XII are intact. Normal gait. Alert and oriented SKIN: There is no apparent rash or petechiae. HEME/LYMPHATIC: There is no evidence of excessive bruising or lymphedema. PSYCHIATRIC: The patient does not appear anxious or depressed. Procedures/MDM Patient was taken to a room, seen and examined Medical decision makin-year-old female presents the emergency department after a brief episode of lightheadedness. She presents with a normal neurologic examination at this time. I have no significant concerns that this is cardiac related or other high-risk issues however I have offered her blood tests and EKG. She states that she feels well and is asymptomatic and does not wish to stay for workup. At this time, she appears stable and appropriate for discharge. Departure Diagnosis: Primary Impression: Dizziness Condition: Stable Patient Instructions: Dizziness, Unk Cause Additional Instructions: Please see your doctor if not improving in the next 2 days. If you decide that she would like your blood tests checked, please return here to the emergency department. FRANK FROST Dec 29, 2018 15:08
[2018-12-29 15:37] VITALS: BP 130/75; PULSE 71; RESP 18
== END 2018-12-29 15:24 | disposition home or self-care (01) ==
LOC: FTE 13:47
DX: R42 Dizziness and giddiness (principal); J45.909 Unspecified asthma, uncomplicated; Z79.82 Long term (current) use of aspirin
CPT/HCPCS: 99282